=== PATIENT | male | born 1980 | race African-American/Black ===

== ENCOUNTER 2017-04-04 09:32 | Emergency (ER) | payer SELFPAY ==
[2017-04-04 09:38] VITALS: BP 147/94
[2017-04-04] MEDS ORDERED: HYDROCODONE/ACETAMINOPHEN 5-325 MG TABLET PO ONE (10:00)
[2017-04-04] MEDS ORDERED: AMOXICILLIN TRIHYDRATE 500 MG CAPSULE PO ONE (10:01)
--- NOTE | 2017-04-04 10:03 | ER Document Report ---
ED Oral Problem - General Chief Complaint: Toothache Stated Complaint: MOUTH PAIN Time Seen by Provider: 04/04/17 09:45 Mode of Arrival: Ambulatory Information source: Patient Notes: Patient is a 37-year-old male who presents to the ER today for pain to the right upper tooth around tooth #4, patient states that the tooth is loose and broken. He does not have a dentist. He denies any fevers or chills but states that he sweats every now and then because of the pain. He states this is been hurting for approximately 2 days. TRAVEL OUTSIDE OF THE [place] IN LAST 30 DAYS: No - Related Data Allergies/Adverse Reactions: No Known Allergies Allergy (Verified 04/04/17 09:33) Past Medical History - General Information source: Patient - Social History Smoking Status: Current Every Day Smoker Chew tobacco use (# tins/day): No Frequency of alcohol use: Occasional Drug Abuse: None Family History: Reviewed & Not Pertinent, DM Patient has suicidal ideation: No Patient has homicidal ideation: No Renal/ Medical History: Denies: Hx Peritoneal Dialysis - Immunizations Hx Diphtheria, Pertussis, Tetanus Vaccination: Yes Review of Systems - Review of Systems Constitutional: See HPI EENT: See HPI Cardiovascular: No symptoms reported Respiratory: No symptoms reported Gastrointestinal: No symptoms reported Genitourinary: No symptoms reported Male Genitourinary: No symptoms reported Musculoskeletal: No symptoms reported Skin: No symptoms reported Hematologic/Lymphatic: No symptoms reported Neurological/Psychological: No symptoms reported Physical Exam - Vital signs Vitals: Temp Pulse Resp BP Pulse Ox 99.1 F 64 16 147/94 H 99 04/04/17 09:37 04/04/17 09:37 04/04/17 09:37 04/04/17 09:37 04/04/17 09:37 - Notes Notes: PHYSICAL EXAMINATION: GENERAL: Uncomfortable appearing, but in no acute distress. HEAD: Atraumatic, normocephalic. EYES: Pupils equal round and reactive to light, extraocular movements intact, sclera anicteric, conjunctiva are normal. ENT: ear canals without erythema or foreign body, TMs pearly leos with good bony landmarks, nares patent, oropharynx clear without exudates. Moist mucous membranes. Very poor dentition, multiple fractured teeth, tender around tooth # 5 upper right NECK: Normal range of motion, supple without lymphadenopathy LUNGS: CTAB and equal. No wheezes rales or rhonchi. HEART: Regular rate and rhythm without murmurs EXTREMITIES: Normal range of motion, no pitting edema. No cyanosis. NEUROLOGICAL: Cranial nerves grossly intact. Normal sensory/motor exams. PSYCH: Normal mood, normal affect. SKIN: Warm, Dry, normal turgor, no rashes or lesions noted Course - Re-evaluation Re-evalutation: 04/04/17 10:02 Patient given pain medication here and started on amoxicillin. - Vital Signs Vital signs: Temp Pulse Resp BP Pulse Ox 99.1 F 64 16 147/94 H 99 04/04/17 09:37 04/04/17 09:37 04/04/17 09:37 04/04/17 09:37 04/04/17 09:37 Discharge - Discharge Clinical Impression: Dental caries Condition: Stable Disposition: HOME, SELF-CARE Additional Instructions: Return immediately for any new or worsening symptoms. Follow up with dentist, call tomorrow to make followup appointment. Prescriptions: Amoxicillin 500 mg PO TID #30 capsule Ibuprofen [Motrin 800 mg Tablet] 800 mg PO Q8H PRN #30 tab PRN Reason: Referrals: [facility] [Provider Group] - Follow up as needed
== END 2017-04-04 10:11 | disposition home or self-care (01) ==
LOC: ER 09:32
DX: K02.9 Dental caries, unspecified (principal); K08.89 Other specified disorders of teeth and supporting structures; F17.200 Nicotine dependence, unspecified, uncomplicated
CPT/HCPCS: 99282